=== PATIENT | male | born 1985 | race Asian ===

== ENCOUNTER 2018-12-26 17:49 | Emergency (ER) | payer MEDICAID, OTHER ==
[~2018-12-26] VITALS: Ht 165.1 cm; Wt 65.9 kg
[2018-12-26 18:11] VITALS: BP 143/94
[2018-12-26] MEDS ORDERED: rabies immune globulin/PF 150 unit/ml inj IMVAC STA (18:50)
[2018-12-26] MEDS ORDERED: rabies vaccine (PCEC)/PF 2.5 unit kit IMVAC ONE (18:50)
[2018-12-26] MEDS ORDERED: TETanus/Pertussis (Acell)/Diphther VAC/PF (Tdap-Adult) 0.5ml syringe IM ONE (19:05)
[2018-12-26] MEDS ORDERED: DOXY100C2 PO (19:27)
[2018-12-26] MEDS ORDERED: AMOX-580 PO (19:27)
== END 2018-12-26 19:52 | disposition home or self-care (01) ==
LOC: ER 17:49
DX: S41.152A Open bite of left upper arm, initial encounter (principal); L03.114 Cellulitis of left upper limb; Z79.899 Other long term (current) drug therapy; W54.0XXA Bitten by dog, initial encounter; Y93.89 Activity, other specified; Y92.89 Other specified places as the place of occurrence of the external cause; Y99.8 Other external cause status
CPT/HCPCS: 90375; 90471; 90472; 90675; 90715; 96372; 99284

== ENCOUNTER 2018-12-29 20:31 | Emergency (ER) | payer MEDICAID, OTHER ==
[~2018-12-29] VITALS: Ht 165.1 cm; Wt 57.0 kg
[~2018-12-29 20:31] MED LIST: AMOX-580 PO; DOXY100C2 PO
[2018-12-29] MEDS ORDERED: rabies vaccine (PCEC)/PF 2.5 unit kit IMVAC ONE (21:25)
--- NOTE | 2018-12-29 21:39 | NUR ---
here for second rabies series injection
[2018-12-29 22:36] VITALS: BP 133/71
== END 2018-12-29 22:38 | disposition home or self-care (01) ==
LOC: ER 20:31
DX: S51.852D Open bite of left forearm, subsequent encounter (principal); Z23 Encounter for immunization; W54.0XXD Bitten by dog, subsequent encounter
CPT/HCPCS: 90471; 90675; 99283